=== PATIENT | female | born 1945 | race Caucasian/White ===

== ENCOUNTER 2023-03-30 15:23 | Inpatient (IN) | payer MEDICARE, OTHER, SELFPAY ==
[2023-03-30 11:29] VITALS: BP 120/78
[2023-03-30 11:55] VITALS: BMI 18.3
[2023-03-30 12:02] VITALS: BP 152/61
--- NOTE | 2023-03-30 12:19 | ED.GENMED ---
History of Present Illness
General
Chief Complaint: Breathing Problem
Source: patient and family
Time Seen by Provider: 03/30/23 11:38
Travel History
Have you had any contact with someone who has COVID-19?: No
Do you have any symptoms of coronavirus? Fever > 100 degrees, chills, cough, shortness of breath, sore throat, loss of taste or smell, muscle aches, or headache?: Yes
Symptoms:: sob
History of Present Illness
History of Present Illness:
78-year-old female with past medical history of TIA and COPD (uses 2 L via nasal cannula as needed) presenting to the emergency department for evaluation of 4 days of gradually worsening chest tightness, shortness of breath, left upper extremity
intermittent paresthesia, mild exertional dyspnea. Patient notes that her symptoms seem to be mostly during any type of exertion with her chest tightness worsening and taking about 5 to 10 minutes to resolve following exertion. She states that
this feels different than a typical COPD exacerbation for her and is otherwise denying any cough, fevers, chills, rigors, pleurisy, hemoptysis or other sputum production, lower extremity edema or pain, abdominal pain. Patient does note she was
admitted at [facility] at the beginning to middle of January due to a COVID infection but reports full recovery from this. Social history was significant for still smoking about 6 cigarettes/day. Patient has never seen cardiology nor had
an echocardiogram or stress test. 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
Past History
Past History
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
ED Past Surgical History: Appendectomy and Gynecological
Social History
Tobacco: Smoker
Alcohol: Occasional
Drug: None
Personal:
Living: alone
Review of Systems
Review of Systems
All Other Systems: ROS reviewed and negative except as documented in HPI and ROS
Phy Exam
Physical Exam
Physical Exam:
GENERAL: Alert , in no apparent distress
EYE: conjunctiva clear
NECK: Supple
ENT: o/p clr, mmm.
CARDIAC: Regular rate and rhythm, systolic murmur at the left sternal border
LUNGS: somewhat diminished lung sounds but otherwise clear, no acute respiratory distress, no wheezes/rales/rhonchi
Abdomen: Soft, nontender, nondistended
NEUROLOGICAL: Alert and oriented
SKIN: Warm and dry, skin intact.
MUSCULOSKELETAL: well perfused. No edema
PSYCH: Normal and appropriate interaction.
Scores
Heart Failure Risk
Heart Failure Risk Score: Not Applicable
Heart Score for Chest Pain Patients
STEMI patient?: No
History: Moderately Suspicious
ECG: Nonspecific Repolarization
Age: >/= 65 years
Risk Factors: 1 or 2 Risk Factors
Troponin: </= Normal Limit
Heart Score for Chest Pain Patients: 5
Heart Score Risk: 20.3% MACE over next 6 weeks
Withdrawal Assessment of Alcohol
Withdrawal Assessment Completed?: Not applicable
Course
Orders/Labs/Results
Orders:
Orders
03/30/23 11:23
Electrocardiogram (*1) Urgent
Reason for Study: Shortness of Breath
EKG- Treatment ONCE
03/30/23 12:19
CT Chest Pe Study Urgent
Comment:
Reason For Exam: tachy, hypoxic, recent covid, hx COPD
03/30/23 12:27
Complete Blood Count/With Diff Urgent
Comprehensive Metabolic Panel Urgent
NT-proBNP Urgent
PTT Urgent
Prothrombin Time Urgent
Troponin I Urgent
03/30/23 14:49
Ipratropium/Albuterol Sulfate [Duoneb] 3 ml INH R NOW ONE
Abnormal Lab Results
03/30/23
12:27
WBC 3.9 L 10^3/uL
(4.8-10.8)
MCHC 32.9 L g/dL
(33.0-37.0)
Absolute Lymphs (auto) 0.7 L 10^3/uL
(1.2-3.4)
Lymphocytes % 17.0 L %
(20.5-51.1)
Monocytes % 12.7 H %
(1.7-9.3)
BUN 18 H mg/dl
(7-17)
Glucose 117 H mg/dl
(70-99)
AST 44 H U/L
(14-36)
03/30/23 12:27
03/30/23 12:27
Vital Signs
Initial and Last Documented VS:
Initial Vital Signs
Temp Pulse Resp BP Pulse Ox
98.2 F 115 32 120/78 87
03/30/23 11:29 03/30/23 11:29 03/30/23 11:29 03/30/23 11:29 03/30/23 11:29
Last Documented Vital Signs
Temp Pulse Resp BP Pulse Ox
98.2 F 81 19 152/57 98
03/30/23 11:29 03/30/23 14:30 03/30/23 14:30 03/30/23 13:00 03/30/23 14:30
MDM/Problems Addressed
Differential Diagnosis Includes:
Stable versus unstable angina versus possible NSTEMI, COPD exacerbation, PE, less likely infectious etiology such as pneumonia
MDM/Problems Addressed:
78-year-old female presenting to the emergency department for evaluation of chest discomfort that has been ongoing for 4 days associated with exertional dyspnea and shortness of breath that do seem to improve at rest. Patient currently on 3 L via
nasal cannula here with good response. Triage vital signs were noted for tachycardia, tachypnea and hypoxia. She is very comfortable appearing on the 3 L. Patient notes that she is intermittently using the oxygen and the son believes patient does
not use this very frequently at nighttime when she is supposed to. Patient does note that this feels different than her typical COPD type symptoms and based off her descriptors I do have some concern for possible stable or unstable angina. She
notes that she has never been seen by cardiology in the past. She does have a murmur on exam and son believes that assistant teaching professor has told her about a murmur before. Given her risk factors I do anticipate possible need for admission. Will obtain
CTA of the chest for PE rule out given recent COVID infection and hospitalization. Reassessment following.
Chronic conditions affecting care: COPD
Acute Exacerbation and/or Progression of Chronic Illness: COPD
*Radiology
Radiology exam reviewed: radiology read reviewed
*Pulse Oximetry
Patient hypoxic: yes
*EKG
Interpreted by ED Provider?: Yes
Comparison EKG: no comparison EKG present
Heart Rate: 113
Rate: tachycardiac
Rhythm: sinus
Blanco: normal axis
Ischemia: T-wave inversion (inferior wall changes)
*[employer] Product Consultant Interpretation
Rate: tachycardiac
Rhythm: sinus
*Critical Care Note
Total Time (30-74mins, 75-104mins- exclusive of procedures): Not Applicable
Patient Management
Discussion with other providers: Hospitalist
Escalation/DeEscalation of care consider admission/obs:
Patient's labs are largely unremarkable. She does have a leukopenia which at this point is unclear if this is chronic or potentially related to patient's symptoms today. Troponin is negative. Troponin and BNP is negative. Patient's chest CT
consistent with COPD changes. There is also an incidental thyroid nodule which I discussed with the patient but that this can be worked up as an outpatient. Ultimately given patient's age and risk factors as well as presenting vital signs I do
think it is reasonable to admit for further evaluation and cardiology consultation. Hospitalist is aware and accepts for continued evaluation and treatment.
ED Attending Note
-
Portions of this chart may have been created with voice recognition software.� Occasional wrong word or��sound alike� substitutions may have occurred due to the inherent limitations of voice recognition software.
Discharge Plan
Departure
Patient Disposition: Admit
Date of Disposition: 03/30/23
Time of Disposition: 14:19
Presentation/result/management discussed w/ accepting MD/DO: Hospitalist
Discharge Problem:
Chest pain, Hypoxia
Prescriptions:
No Action
Theragen Tablet
1 tab PO DAILY
aspirin 81 mg Tablet,Delayed Release (Dr/Ec)
81 mg PO DAILY
Patient Comments:
03/30/2023, pt. unsure if she took this med. today.
acetaminophen [Tylenol Extra Strength] 500 mg Tablet
500 mg PO BIDPRN PRN (Reason: mild pain)
simvastatin 20 mg Tablet
20 mg PO HS
Patient Comments:
03/30/2023, this med. is prescribed for pt. to take once daily; however, pt. only takes it when they feel like it.
albuterol sulfate 90 mcg/actuation Hfa Aerosol Inhaler
2 puff INHALATION R Q4HPRN PRN (Reason: sob)
cholecalciferol (vitamin D3) 50 mcg (2,000 unit) Tablet
50 mcg PO DAILY
Trelegy Ellipta 100-62.5-25 mcg Blister With Device
1 inh INHALATION R DAILY
Referrals:
Narayan Jung DO [Family Provider] -
Interventions
Interventions:
*Risk Screen - Suicide Last Done: 03/30/23 11:29
*General Assessment Last Done: 03/30/23 11:29
*Neglect/Abuse Screening Last Done: 03/30/23 11:29
ED- Fall Risk Assessment Last Done: 03/30/23 11:55
*ED COVID-19 Vaccine History Last Done: 03/30/23 11:29
ED- Cardiac Assessment Last Done: 03/30/23 11:55
ED- Pulmonary Assessment Last Done: 03/30/23 11:55
[2023-03-30 12:44] LABS: % Eosinophils 0.5 % (0-6); % Immature Granulocytes 0.3 % (0-0.5); % Monocytes 12.7 % (1.7-9.3); % Neutrophils 68.5 % (42.2-75.2); Absolute Lymphocytes 0.7 10^3/uL (1.2-3.4); Absolute Monocytes 0.5 10^3/uL (0.1-0.6); Absolute Neutrophils 2.7 10^3/uL (1.4-6.5); Hematocrit 42.3 % (37.0-47.0); Hemoglobin 13.9 g/dL (12.0-16.0); Mean Corp Hgb Conc. 32.9 g/dL (33.0-37.0); Mean Corpuscular Hgb 30.7 pg (27.0-31.0); Mean Corpuscular Volume 93.4 fL (81.0-99.0); Mean Platelet Volume 9.9 fL (7.4-10.4); Nucleated Red Blood Cells % 0 %; Platelet Count 182 10^3/uL (130-400); Red Blood Cell Count 4.53 10^6/uL (4.20-5.40); White Blood Cell Count 3.9 10^3/uL (4.8-10.8)
[2023-03-30 12:52] LABS: INR 1.08; PT 14.1 Sec (11.4-14.6)
[2023-03-30 12:53] LABS: APTT 29.1 Sec (23.4-35.0)
[2023-03-30 13:00] VITALS: BP 152/57
[2023-03-30 13:05] LABS: NT-proBNP 176 pg/ml; Troponin I < 0.012 ng/ml
[2023-03-30 13:07] LABS: ALT (SGPT) 21 U/L (0-35); AST (SGOT) 44 U/L (14-36); Alkaline Phosphatase 63 U/L (38-126); Blood Urea Nitrogen 18 mg/dl (7-17); Calcium 9.6 mg/dl (8.4-10.2); Carbon Dioxide 29 mmol/L (22-30); Chloride 102 mmol/L (98-107); Estimated Creatinine Clearance 51 ml/min; Glucose 117 mg/dl (70-99); Potassium 4.6 mmol/L (3.5-5.1); Sodium 136 mmol/L (135-145); Total Bilirubin 0.7 mg/dl (0.2-1.3); Total Protein 6.8 g/dl (6.3-8.2); eGFR > 60.00
--- NOTE | 2023-03-30 14:52 | HPS.HSE ---
Addendum entered and electronically signed by Tj Cardoso MD 03/30/23 15:29:
I saw and examined the patient.
The INSURANCE SALESMAN or PA's note was reviewed and I agree with the note.
Comment:
Patient 78 years old female with history of COPD, TIA, peripheral vascular disease, hyperlipidemia, current smoker, chronic hypoxic respiratory failure on home oxygen, presented to the hospital with increased shortness of breath and cough. Patient
has been feeling more short of breath than usual over the last 4 to 5 days associated with dry cough that has been increasing in frequency and intensity, associated with chest tightness. She is supposed to use 2 L of oxygen but she is not very
compliant with oxygen use. Denies fevers or chills. Denies sick contact. 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 She was referred to hospitalist for further evaluation.
Physical exam:
General: Acutely ill. There is some muscle wasting/cachectic.
HEENT: Normocephalic, Atraumatic and Moist Mucous Membranes
Respiratory: Bilateral wheezing, rhonchi, tachypneic, respiratory distress due to increased work of breathing. On oxygen.
Cardiac: Regular Rhythm, tachycardic, and S1/S2
GI: Soft, Nontender and Nondistended
Musculoskeletal: No Clubbing, No Cyanosis and No Edema
Neuro: Awake, Alert and Oriented
Psych: Calm
A/P
Acute on chronic hypoxic respiratory failure due to acute COPD exacerbation--> IV steroids, bronchodilators, oxygen supplementation, cardiac monitoring, trop normal and she had an EKG with some abnormalities but could be tachycardia mediated so we
will repeat along with cardiac enzymes, seen and reviewed CT scan of the chest. Will need thyroid ultrasound either later down the road or as outpatient with subsequent biopsy. Will give further recommendations based on clinical course. Discussed
with patient and son at bedside that if she were to worsen she will require intubation and mechanical ventilation but she is firm and decided in the sense she does not want that, and she was to be DNR/DNI.
Original Note:
Family Physician
-
Family Physician: Narayan Jung
Chief Complaint
-
Chest Tightness
History of Present Illness
Patient is an 78-year-old female past medical history of COPD, TIA and hyperlipidemia who presents with chest tightness. Patient reports increasing chest tightness over the last 4 days. She describes the chest tightness mostly in the center of her
chest. She notes symptoms are worse with exertion, and improved with rest. She admits to slight shortness of breath. She notes cough that is moist, but nonproductive. She reports she had COVID about 2 months ago, and notes increased cough since
that time. She denies fever, sweats or chills at the present time. She denies lower extremity edema.
Medical History
Past Medical History
Past Medical History: Reports Other
Additional Past Medical History:
COPD
Hyperlipidemia
TIA
Past Surgical History: Reports Other
Additional Past Surgical History:
Appendectomy
Hysterectomy
Left Carotid Endarterectomy
Social History
Tobacco: Smoker (6 cigarettes a day)
Family History
Family History: Not pertinent
Allergies / Home Medications
Allergies reflects when Allergies were last updated in [facility].
Home Medications with original date entered in [facility]
Allergy/Medication List:
Allergies
Allergy/AdvReac Type Severity Reaction Status Date / Time
No Known Allergies Allergy Unverified 03/30/23 11:32
Home Medications
acetaminophen 500 mg tablet (Tylenol Extra Strength) 500 mg PO BIDPRN PRN mild pain 03/30/23
albuterol sulfate 90 mcg/actuation aerosol inhaler 2 puff inhalation R Q4HPRN PRN sob 03/30/23
aspirin 81 mg tablet,delayed release 81 mg PO DAILY 03/30/23
cholecalciferol (vitamin D3) 50 mcg (2,000 unit) tablet 50 mcg PO DAILY 03/30/23
fluticasone fur. 100 mcg-umeclid 62.5 mcg-vilant 25 mcg inhalat.powder (Trelegy Ellipta) 1 inh inhalation R DAILY 03/30/23
simvastatin 20 mg tablet 20 mg PO HS 03/30/23
therapeutic multivitamin 1 tab PO DAILY 03/30/23
Review of Systems
-
A 12 point ROS was completed and negative except as noted: Yes
Constitutional: Denies Fever or Chills
Respiratory: Reports Cough and Trouble Breathing
Cardiac: Reports Chest Pain; Denies Palpitations
Physical Exam
Vital Signs
Vital Signs
Temp Pulse Resp BP Pulse Ox
98.2 F 81 19 152/57 98
03/30/23 11:29 03/30/23 14:30 03/30/23 14:30 03/30/23 13:00 03/30/23 14:30
Physical Exam
General: Comfortable and Conversant
HEENT: NormoCephalic, Atraumatic and Oxygen (Nasal cannula)
Respiratory: Wheezes (Diffuse) and Non Labored Respirations
Cardiac: S1/S2, Regular Rhythm and Murmur (2/6 systolic murmur)
GI: Soft, Non Tender and Non Distended
Rectal: Deferred by Provider
Musculoskeletal: No Clubbing, No Cyanosis and No Edema
Skin: Warm and Dry
Neuro: Awake, Alert and Oriented
Psych: Calm
Laboratory Results
-
03/30/23 12:27
03/30/23 12:27
Laboratory Results
PT 14.1 Sec (11.4-14.6) 03/30/23 12:27
INR 1.08 03/30/23 12:27
APTT 29.1 Sec (23.4-35.0) 03/30/23 12:27
Total Bilirubin 0.7 mg/dl (0.2-1.3) 03/30/23 12:27
AST 44 U/L (14-36) H 03/30/23 12:27
ALT 21 U/L (0-35) 03/30/23 12:27
Alkaline Phosphatase 63 U/L (38-126) 03/30/23 12:27
Troponin I < 0.012 ng/ml 03/30/23 12:27
Data Reviewed
-
CT Scan: Report Reviewed by me
Lab Data: Labs Reviewed by me
Impression/Plan
-
Acute Hypoxic Respiratory Inefficiency secondary to Acute COPD Exacerbation
-Continue supplemental oxygen
-Continue Decadron
-Continue DuoNeb QID and PRN
-Continue Pulmicort Nebs
Chest Tightness, suspect related to COPD exacerbation, less likely cardiac
-Monitor on Telemetry
-Check repeat troponin later this after
Cardiac Murmur
-Check Echocardiogram
Hx Recurrent TIA s/p Left Carotid Endarterectomy
-Continue aspirin
Hyperlipemia
-Continue simvastatin
DVT proph: Lovenox
Code Status: DNR
[2023-03-30] MEDS: DUONEB 3 ML INH ×2 (14:56→19:24)
[2023-03-30 16:41] VITALS: BP 90/51
[2023-03-30 17:07] VITALS: BMI 18.1
[2023-03-30] MEDS: DECADRON 4 MG IV ×2 (17:09→22:26)
[2023-03-30 17:10] LABS: Troponin I < 0.012 ng/ml
[2023-03-30] MEDS: LOVENOX 40 MG SC (17:13)
[2023-03-30] MEDS: PULMICORT 0.5 MG INH (19:24)
[2023-03-30 19:46] VITALS: BP 161/66
[2023-03-30] MEDS: MUCINEX 600 MG PO (20:40)
[2023-03-30] MEDS: LIPITOR 10 MG PO (22:26)
[2023-03-30 23:27] VITALS: BP 122/57
[2023-03-31] VITALS (8 sets, daily range): BP systolic 93–143; BP diastolic 54–72; PULSE 87; O2SAT 95; BMI 17.8
[2023-03-31] MEDS: DECADRON 4 MG IV ×4 (04:53→22:09)
[2023-03-31 06:03] LABS: % Basophils 0.5 % (0-2); % Immature Granulocytes 0.5 % (0-0.5); % Lymphocytes 35.5 % (20.5-51.1); % Neutrophils 54.5 % (42.2-75.2); Absolute Lymphocytes 0.7 10^3/uL (1.2-3.4); Absolute Monocytes 0.2 10^3/uL (0.1-0.6); Absolute Neutrophils 1.1 10^3/uL (1.4-6.5); Hematocrit 44.3 % (37.0-47.0); Hemoglobin 14.4 g/dL (12.0-16.0); Mean Corp Hgb Conc. 32.5 g/dL (33.0-37.0); Mean Corpuscular Hgb 30.7 pg (27.0-31.0); Mean Corpuscular Volume 94.5 fL (81.0-99.0); Mean Platelet Volume 10.7 fL (7.4-10.4); Nucleated Red Blood Cells % 0 %; Platelet Count 172 10^3/uL (130-400); Red Blood Cell Count 4.69 10^6/uL (4.20-5.40)
[2023-03-31 06:58] LABS: Blood Urea Nitrogen 20 mg/dl (7-17); Calcium 9.7 mg/dl (8.4-10.2); Carbon Dioxide 26 mmol/L (22-30); Chloride 101 mmol/L (98-107); Estimated Creatinine Clearance 57 ml/min; Glucose 127 mg/dl (70-99); Potassium 4.6 mmol/L (3.5-5.1); Sodium 139 mmol/L (135-145); eGFR > 60.00
[2023-03-31] MEDS: MUCINEX 600 MG PO ×2 (07:18→20:48)
[2023-03-31] MEDS: ASPIR LOW (ENTERIC COATED) 81 MG PO (07:18)
[2023-03-31] MEDS: VITAMIN D3 (cholecalciferol) 50 MCG PO (07:18)
[2023-03-31] MEDS: PULMICORT 0.5 MG INH ×2 (07:46→19:20)
[2023-03-31] MEDS: DUONEB 3 ML INH ×3 (07:46→19:20)
--- NOTE | 2023-03-31 08:35 | W.PN.HOSP.TC ---
Today's Communication/Plan
-
Continue IV steroids, oral antibiotics, bronchodilators.
Assessment / Plan
Assessment / Plan
Physical exam:
General: Acutely ill.� There is some muscle wasting/cachectic.
HEENT: Normocephalic, Atraumatic and Moist Mucous Membranes
Respiratory: Bilateral wheezing, rhonchi, tachypneic, respiratory distress due to increased work of breathing.� On oxygen.
Cardiac: Regular Rhythm, tachycardic, and S1/S2, systolic ejection murmur
GI: Soft, Nontender and Nondistended
Musculoskeletal: No Clubbing, No Cyanosis and No Edema
Neuro: Awake, Alert and Oriented
Psych: Calm
A/P:
Acute on chronic hypoxic respiratory failure secondary to Acute COPD Exacerbation
-Continue supplemental oxygen
-Continue IV Decadron, 4 mg every 6 hours
-Continue DuoNeb QID and PRN
-Continue Pulmicort Nebs
-Add oral azithromycin (QTc acceptable 450)
-Started nicotine patch
-Will have pulmonary consult for further advice and evaluation
Chest Tightness, suspect related to COPD exacerbation, less likely cardiac
-Monitor on Telemetry
-Troponin negative x 2 less than 0.012
-Abnormal EKG
-Can consider outpatient ischemic workup if desired with cardiology
-Echocardiogram normal regional wall motion and EF more than 75%. There was moderate aortic stenosis.
Aortic stenosis:
-Moderate aortic stenosis by transthoracic echo
-Will need follow-up as outpatient with cardiology
Leukopenia
-Monitor
Hx Recurrent TIA s/p Left Carotid Endarterectomy
-Continue aspirin
Hyperlipemia
-Continue simvastatin
DVT proph: Lovenox
Code Status: DNR
Anticipated Discharge: > 48 hours
Subjective/Interval History
-
Date of Service: March 31, 2023
Patient feels not much improvement since yesterday, still short of breath, still some cough. Afebrile
Objective Data
-
Labs:
Laboratory Results
03/31/23
05:09
WBC 2.0 L*
Hgb 14.4
Hct 44.3
Plt Count 172
Sodium 139
Potassium 4.6
Chloride 101
Carbon Dioxide 26
BUN 20 H
Creatinine 0.6
Glucose 127 H
Calcium 9.7
Vital Signs:
Vital Signs
Temp Pulse Resp BP Pulse Ox
97.9 F 95 18 93/63 96
03/31/23 07:41 03/31/23 07:49 03/31/23 07:49 03/31/23 07:41 03/31/23 07:49
I&O
03/30/23 03/31/23 04/01/23
06:59 06:59 06:59
Intake Total 480 / 480
Balance 480 / 480
[2023-03-31] MEDS: ZITHROMAX 250 MG PO (09:48)
--- NOTE | 2023-03-31 14:21 | CM ---
Chart reviewed. Spoke with pt at bedside
Pt reports lives in a ranch style home alone
Has assistance/support from family
Has home oxygen from [employer] - baseline 2L
Reports no other dme.
Denies past HH/SNF
PCP - Dr Marina Jung
Pharm - [facility]
PT/OT recommending home health
Pt has no preference for agency
Referred to [facility] for home services
Plan - home with home services when medically ready
[2023-03-31] MEDS: DUONEB INH ×2 (15:41→15:44)
--- NOTE | 2023-03-31 16:14 | CON.PUL ---
Consultation
Consultation Request
Date/Time Consultation Requested: 03/31/23
Date/Time Consultation Performed: 03/31/23
Reason for Consultation: shortness of breath, COPD
Medical History
-
History of Present Illness:
History obtained from the chart and from the patient. Patient is an 78-year-old female with history of COPD diagnosed 4 months ago on Trelegy inhaler since with improvement, Covid January 2023 hospitalized at [facility], now presents with increased
shortness of breath over the past 4 to 7 days. Patient feels breathing has worsened slowly over the last 6 months. She does have albuterol at home. She was told to come to [facility] per her primary. Upon arrival, she is afebrile, pulse
115, breathing at 32, blood pressure 120/78, 87%. CT chest was obtained which ruled out PE. We are asked to help from pulmonary standpoint.
Patient states she has been on oxygen therapy since her COVID infection. She does not see cardiology. She denies any falls, fevers, hemoptysis, difficulty swallowing or choking. She admits to 5 to 10 pound weight loss over the last couple months
which she attributes to her breathing. Unfortunate she continues to smoke down to 6 cigarettes a day, was smoking a pack for 60 years. 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
.
PMH: COPD on home oxygen, history of TIA, hyperlipidemia, appendectomy, left carotid endarterectomy, hysterectomy
Past Medical History
Past Medical History: None (See above)
Past Surgical History: None (See above)
Social History
Tobacco: Smoker ([id number], continues to smoke 6 cigarettes a day)
Alcohol: None
Drug: None
Personal:
Living: Alone
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
Family History
Family History: Other (No family history of lung disease, lung cancer)
Allergies / Home Medications
Allergies
Allergy/AdvReac Type Severity Reaction Status Date / Time
No Known Allergies Allergy Unverified 03/30/23 11:32
Home Medications
Medication Instructions Recorded Confirmed Last Taken Type
acetaminophen 500 mg tablet 500 mg PO BIDPRN PRN mild pain 03/30/23 03/30/23 3 Days Ago History
(Tylenol Extra Strength) ~03/27/23
albuterol sulfate 90 mcg/actuation 2 puff inhalation R Q4HPRN PRN sob 03/30/23 03/30/23 03/29/23 History
aerosol inhaler
aspirin 81 mg tablet,delayed 81 mg PO DAILY Blood Clot 03/30/23 03/30/23 Unknown History
release Prevention/Tx
cholecalciferol (vitamin D3) 50 50 mcg PO DAILY Supplement 03/30/23 03/30/23 03/30/23 History
mcg (2,000 unit) tablet
fluticasone fur. 100 mcg-umeclid 1 inh inhalation R DAILY 03/30/23 03/30/23 03/30/23 History
62.5 mcg-vilant 25 mcg Lung/Breathing Issues
inhalat.powder (Trelegy Ellipta)
simvastatin 20 mg tablet 20 mg PO HS High Cholesterol 03/30/23 03/30/23 Unknown History
therapeutic multivitamin 1 tab PO DAILY Supplement 03/30/23 03/30/23 03/30/23 History
Review of Systems
-
All other systems: Negative unless noted
Vitals / Labs / Diagnostic Testing
Vital Signs
Temp Pulse Resp BP Pulse Ox
97.9 F 99 17 143/62 94
03/31/23 15:37 03/31/23 15:37 03/31/23 15:37 03/31/23 15:37 03/31/23 15:37
Lab Data
03/31/23 05:09
03/31/23 05:09
Diagnostic Testing:
Physical Exam
-
HEENT: Normocephalic, Anicteric and Other (Mildly cachectic)
Cardiovascular: S1/S2, Regular Rhythm, Murmur (2/6 systolic murmur), Peripheral Edema (n) and Calf Tenderness (n)
Respiratory: Wheeze (Mild expiratory), Rales (n), Rhonchi (n), Non-Labored Respirations, Accessory Resp Muscle Use (Mild used with conversation and movement) and Other (Decreased breath sounds)
GI: Soft, Non Distended and Non Tender
Neurology: Awake, Alert, Oriented and No Motor Deficits
Skin: Good Color and Other (No clubbing, cyanosis, no rash)
General: Comfortable
Assessment
-
78-year-old female with history of COPD on home oxygen, recent COVID infection requiring hospitalization 2022 at [facility], now presents with worsening shortness of breath over the past 4 to 7 days. Found to be hypoxic 87% on oxygen. Admitted for
COPD exacerbation. We are asked to help from pulmonary standpoint
Acute COPD exacerbation
Leukopenia
3 cm thyroid mass per CT imaging
no significant tracheal extrinsic compression
Pulmonary cachexia
10 pound weight loss over the past few weeks to months
Conditions prior to admission
History of COPD
On home oxygen
History of Covid
Hospitalized at [facility] January 2023
History of TIA
History of carotid disease
LCEA
19-[id number]-[id number] history of smoking, ongoing
Plan/recommendations
At this time, patient with poor air movement on exam, mild wheezing
Difficult to expectorate
She is on home oxygen, using Trelegy at home
She is not using her nebulizer as instructed
Moving forward
Continue with DuoNebs, budesonide
Hold Trelegy
Continue with IV Decadron
Agree with daily macrolide therapy, azithromycin
Add 3% saline in the a.m.
GERD therapy while on steroids
Concerned about patient's 10 pound weight loss which will likely have a dramatic effect on her respiratory status
Nutritional evaluation
Rec pulm f/u as op
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
Will follow
[2023-03-31] MEDS: LOVENOX 40 MG SC (17:10)
[2023-03-31] MEDS: LIPITOR 10 MG PO (22:09)
[2023-04-01] MEDS: PEPCID 20 MG PO (01:11)
[2023-04-01 03:42] VITALS: BP 137/62
[2023-04-01] MEDS: DECADRON 4 MG IV ×4 (05:33→22:34)
[2023-04-01 06:00] VITALS: BMI 18.0
[2023-04-01 07:00] VITALS: BP 136/54
--- NOTE | 2023-04-01 07:47 | W.PN.HOSP.TC ---
Today's Communication/Plan
-
Continue IV steroids, bronchodilators.
Assessment / Plan
Assessment / Plan
Physical exam:
General: Acutely ill.� There is some muscle wasting/cachectic.
HEENT: Normocephalic, Atraumatic and Moist Mucous Membranes
Respiratory: Bilateral wheezing, rhonchi, tachypneic, respiratory distress due to increased work of breathing.� On oxygen.
Cardiac: Regular Rhythm, tachycardic, and S1/S2, systolic ejection murmur
GI: Soft, Nontender and Nondistended
Musculoskeletal: No Clubbing, No Cyanosis and No Edema
Neuro: Awake, Alert and Oriented
Psych: Calm
A/P:
Acute on chronic hypoxic respiratory failure secondary to Acute COPD Exacerbation
-Continue supplemental oxygen
-Continue IV Decadron, 4 mg every 6 hours
-Continue DuoNeb QID and PRN
-Continue Pulmicort Nebs
-Cont oral azithromycin (QTc acceptable 450)
-Cont nicotine patch
-Pulmonary consult appreciated
-Discussed with son over the phone
Thyroid mass
-Needs thyroid ultrasound down the road and probably outpatient biopsy
Chest Tightness, suspect related to COPD exacerbation, less likely cardiac
-Monitor on Telemetry
-Troponin negative x 2 less than 0.012
-Abnormal EKG
-Can consider ischemic workup with cardiology as outpatient when she improved from this hospitalization and her copd.
-Echocardiogram normal regional wall motion and EF more than 75%. There was moderate aortic stenosis.
Aortic stenosis:
-Moderate aortic stenosis by transthoracic echo
-Will need follow-up as outpatient with cardiology
Leukopenia
-Monitor
Hx Recurrent TIA s/p Left Carotid Endarterectomy
-Continue aspirin
Hyperlipemia
-Continue simvastatin
DVT proph: Lovenox
Code Status: DNR
Anticipated Discharge: > 48 hours
Subjective/Interval History
-
Date of Service: April 01, 2023
Patient feels slightly better today although still short of breath and coughing spells. No chest pain. Afebrile
Objective Data
-
Vital Signs:
Vital Signs
Temp Pulse Resp BP Pulse Ox
97.6 F 64 18 136/54 98
04/01/23 07:00 04/01/23 07:00 04/01/23 07:00 04/01/23 07:00 04/01/23 07:00
I&O
03/31/23 04/01/23 04/02/23
06:59 06:59 06:59
Intake Total 480 / 480 0 1859
Balance 480 / 480 1859
Review of Systems
-
All other systems: Reviewed and negative
[2023-04-01] MEDS: PROTONIX IV 40 MG IV (07:54)
[2023-04-01] MEDS: MUCINEX 600 MG PO ×2 (07:55→21:40)
[2023-04-01] MEDS: NSS (PRESERVATIVE FREE) 10 ML IV (07:55)
[2023-04-01] MEDS: ZITHROMAX 250 MG PO (07:55)
[2023-04-01] MEDS: VITAMIN D3 (cholecalciferol) 50 MCG PO (07:55)
[2023-04-01] MEDS: ASPIR LOW (ENTERIC COATED) 81 MG PO (07:55)
[2023-04-01] MEDS: TESSALON PERLES 200 MG PO (07:55)
[2023-04-01] MEDS: DUONEB 3 ML INH ×4 (08:33→19:16)
[2023-04-01] MEDS: PULMICORT 0.5 MG INH ×2 (08:33→19:16)
[2023-04-01] MEDS: SODIUM CHLORIDE 3% FOR INHALATION 1 VIAL INH (08:33)
[2023-04-01 11:00] VITALS: BP 137/92
[2023-04-01 14:51] VITALS: PULSE 92; O2SAT 94
[2023-04-01 15:00] VITALS: BP 108/73
[2023-04-01] MEDS: LOVENOX 40 MG SC (17:46)
--- NOTE | 2023-04-01 18:49 | W.PN.PUL3 ---
Today's Communication / Plan
-
O2
BDs
CS
Azithro
Assessment
-
78-year-old female with history of COPD on home oxygen, recent COVID infection requiring hospitalization 2022 at [place], now presents with worsening shortness of breath over the past 4 to 7 days. Found to be hypoxic 87% on oxygen. Admitted for
COPD exacerbation. We are asked to help from pulmonary standpoint
Acute COPD exacerbation
Leukopenia
3 cm thyroid mass per CT imaging
no significant tracheal extrinsic compression
Pulmonary cachexia
10 pound weight loss over the past few weeks to months
Conditions prior to admission
History of COPD
On home oxygen
History of Covid
Hospitalized at [place] January 2023
History of TIA
History of carotid disease
LCEA
[id number] history of smoking, ongoing
Plan/recommendations
Slow clinical improvement
She is on home oxygen 2.5L, using Trelegy ellipta at home
She is not using her nebulizer as instructed
Continue with DuoNebs, budesonide
Hold Trelegy for now, resume upon d/c
Continue with IV Decadron 4 mg IV q6, down to 4 mg q12 if improvement continues in AM
Agree with daily macrolide therapy, azithromycin
Add 3% saline in the a.m.
GERD therapy while on steroids
Concerned about patient's 10 pound weight loss which will likely have a dramatic effect on her respiratory status
Nutritional evaluation appreciated
Rec pulm f/u as op
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
D/w [facility]
Subjective Data
-
Date of Service:
Date of Service: April 01, 2023
Chief Complaint: Pulmonary Follow Up
Subjective:
Reports improvement of dyspnea and cough
On home O2 2.5L
Currently on 3L, POx 94%
Review of Systems
General: Fever (n), Sweats (n), Chills (n) and Satisfactory Appetite
HEENT: Epistaxis (n) and Dysphagia (n)
Cardiopulmonary: Dyspnea on Exertion, Cough, Wheezing and Hemoptysis
GI: Abdominal Pain (n), Nausea and Vomiting (n)
Neuro: Weakness
Objective Data
Data Reviewed
Vital Signs / I&O / Oxygen:
Vital Signs
Temp Pulse Resp BP Pulse Ox
97.6 F 111 20 108/73 94
04/01/23 15:00 04/01/23 15:26 04/01/23 15:26 04/01/23 15:00 04/01/23 15:26
Intake and Output
03/31/23 04/01/23 04/02/23
06:59 06:59 06:59
Intake Total 480 / 480 1860 / 1860 900 / 900
Balance 480 / 480 1860 / 1860 900 / 900
SaO2 94
Nasal Cannula flow liters per 3
minute
Physical Exam
General: Comfortable
HEENT: Normocephalic and Moist Mucous Membranes
Cardiovascular: Regular Rhythm, Murmur, Peripheral Edema and Calf Tenderness (n)
Respiratory: Wheeze (mild), Rhonchi and Stridor
GI: Soft, Non Distended and Non Tender
Neurology: Awake, AO x 3 and No Motor Deficits
Skin: Dry
Labs/Micro/Reports
Lab Data
03/31/23 05:09
03/31/23 05:09
[2023-04-01] MEDS: LIPITOR 10 MG PO (21:39)
[2023-04-01 23:54] VITALS: BP 148/95
[2023-04-02] MEDS: DECADRON 4 MG IV ×3 (05:41→17:34)
[2023-04-02 06:00] VITALS: BMI 18.0
[2023-04-02 07:00] VITALS: BP 136/58
[2023-04-02] MEDS: PULMICORT 0.5 MG INH ×2 (07:29→20:28)
[2023-04-02] MEDS: SODIUM CHLORIDE 3% FOR INHALATION 1 VIAL INH (07:29)
[2023-04-02] MEDS: DUONEB 3 ML INH ×4 (07:29→20:28)
--- NOTE | 2023-04-02 08:27 | W.PN.HOSP.TC ---
Today's Communication/Plan
-
Continue IV steroids and bronchodilators. Discharge planning in progress
Assessment / Plan
Assessment / Plan
Physical exam:
General: Acutely ill.� There is some muscle wasting/cachectic.
HEENT: Normocephalic, Atraumatic and Moist Mucous Membranes
Respiratory: Decreased breath sounds bilateral; Bilateral wheezing but less than before. No crackles or rhonchi.� On oxygen.
Cardiac: Regular Rhythm, tachycardic, and S1/S2, systolic ejection murmur
GI: Soft, Nontender and Nondistended
Musculoskeletal: No Clubbing, No Cyanosis and No Edema
Neuro: Awake, Alert and Oriented
Psych: Calm
A/P:
Acute on chronic hypoxic respiratory failure secondary to Acute COPD Exacerbation
-Continue supplemental oxygen
-Continue IV Decadron, 4 mg every 6 hours--> decrease to 4 mg every 8 hours today and possible change to oral tomorrow
-Continue DuoNeb QID and PRN
-Continue Pulmicort Nebs
-Cont oral azithromycin (QTc acceptable 450)
-Cont nicotine patch
-Pulmonary consult appreciated
-Discussed with son over the phone yesterday
-Assess for home oxygen tomorrow
Anxiety
-Will start with nonpharmacological measures first, and discussed about BuSpar and or Xanax and she would prefer BuSpar if needed which it is reasonable but at this point we will reevaluate.
Thyroid mass
-Needs thyroid ultrasound down the road and probably outpatient biopsy
-Will need follow-up with either ENT or endocrinology as outpatient.
Chest Tightness, suspect related to COPD exacerbation, less likely cardiac
-Monitor on Telemetry
-Troponin negative x 2 less than 0.012
-Abnormal EKG
-Can consider ischemic workup with cardiology as outpatient when she improved from this hospitalization and her copd.
-Echocardiogram normal regional wall motion and EF more than 75%. There was moderate aortic stenosis.
Aortic stenosis:
-Moderate aortic stenosis by transthoracic echo
-Will need follow-up as outpatient with cardiology
Leukopenia
-Monitor
Hx Recurrent TIA s/p Left Carotid Endarterectomy
-Continue aspirin
Hyperlipemia
-Continue simvastatin
DVT proph: Lovenox
Code Status: DNR
Anticipated Discharge: Within 24 hours
Subjective/Interval History
-
Date of Service: April 02, 2023
Patient feels better today, still having cough, less shortness of breath. No chest pain. She does feel anxious at times.
Objective Data
-
Vital Signs:
Vital Signs
Temp Pulse Resp BP Pulse Ox
97.5 F 76 20 136/58 96
04/02/23 07:00 04/02/23 07:33 04/02/23 07:33 04/02/23 07:00 04/02/23 07:33
I&O
04/01/23 04/02/23 04/03/23
06:59 06:59 06:59
Intake Total 1859 1140 / 1140
Balance 1859 1140 / 1140
Review of Systems
-
All other systems: Reviewed and negative
[2023-04-02] MEDS: MUCINEX 600 MG PO ×2 (08:49→20:39)
[2023-04-02] MEDS: ZITHROMAX 250 MG PO (08:49)
[2023-04-02] MEDS: TESSALON PERLES 200 MG PO (08:49)
[2023-04-02] MEDS: ASPIR LOW (ENTERIC COATED) 81 MG PO (08:50)
[2023-04-02] MEDS: NSS (PRESERVATIVE FREE) 10 ML IV (08:50)
[2023-04-02] MEDS: VITAMIN D3 (cholecalciferol) 50 MCG PO (08:50)
[2023-04-02] MEDS: PROTONIX IV 40 MG IV (08:50)
[2023-04-02] MEDS: TYLENOL 650 MG PO ×2 (12:12→17:41)
[2023-04-02 15:00] VITALS: BP 98/48
--- NOTE | 2023-04-02 15:19 | W.PN.PUL3 ---
Today's Communication / Plan
-
O2
CS
BDs
Assessment
-
78-year-old female with history of COPD on home oxygen, recent COVID infection requiring hospitalization 2022 at [place], now presents with worsening shortness of breath over the past 4 to 7 days. Found to be hypoxic 87% on oxygen. Admitted for
COPD exacerbation. We are asked to help from pulmonary standpoint
Acute COPD exacerbation
Leukopenia
3 cm thyroid mass per CT imaging
no significant tracheal extrinsic compression
Pulmonary cachexia
10 pound weight loss over the past few weeks to months
Conditions prior to admission
History of COPD
On home oxygen
History of Covid
Hospitalized at [place] January 2023
History of TIA
History of carotid disease
LCEA
[id number] history of smoking, ongoing
Plan/recommendations
She is on home oxygen 2.5L, using Trelegy ellipta at home
She was not using her nebulizer as instructed
Continue with DuoNebs, budesonide
Hold Trelegy for now, resume upon d/c
Continue with IV Decadron 4 mg IV q6, down to 4 mg q8
Transition to prednisone 40 mg qd tomorrow if improvement continues
Agree with daily macrolide therapy, azithromycin, continue as outpatient
Added 3% saline neb in the a.m., can d/c upon d/c
GERD therapy while on steroids
Concerned about patient's 10 pound weight loss which will likely have a dramatic effect on her respiratory status
Nutritional evaluation appreciated
Rec pulm f/u as op
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
D/w Mrs Burgos
Disposition efforts
Subjective Data
-
Date of Service:
Date of Service: April 02, 2023
Chief Complaint: Pulmonary Follow Up
Subjective:
No major events reported
Continues on O2
Resp daniel improving
Review of Systems
General: Fever (n), Sweats (n), Chills (n) and Satisfactory Appetite
HEENT: Epistaxis (n) and Dysphagia (n)
Cardiopulmonary: Dyspnea, Cough and Wheezing
GI: Abdominal Pain (n), Nausea (n) and Vomiting (n)
Neuro: Weakness (n)
Objective Data
Data Reviewed
Vital Signs / I&O / Oxygen:
Vital Signs
Temp Pulse Resp BP Pulse Ox
97.5 F 90 20 136/58 96
04/02/23 07:00 04/02/23 11:18 04/02/23 11:18 04/02/23 07:00 04/02/23 11:18
Intake and Output
04/01/23 04/02/23 04/03/23
06:59 06:59 06:59
Intake Total 1859 1140 / 1140
Balance 0 / 1859 1140 / 1140
SaO2 96
Nasal Cannula flow liters per 2
minute
Physical Exam
General: Comfortable
HEENT: Normocephalic and Moist Mucous Membranes
Cardiovascular: Regular Rhythm, Murmur, Peripheral Edema and Calf Tenderness (n)
Respiratory: Wheeze (improved, trace now), Rhonchi and Stridor
GI: Soft, Non Distended and Non Tender
Neurology: Awake, AO x 3 and No Motor Deficits
Skin: Dry
Labs/Micro/Reports
Lab Data
03/31/23 05:09
03/31/23 05:09
[2023-04-02] MEDS: LOVENOX 40 MG SC (17:35)
[2023-04-02] MEDS: LIPITOR 10 MG PO (21:29)
[2023-04-02 23:44] VITALS: BP 129/69
[2023-04-03] MEDS: TYLENOL 650 MG PO ×2 (00:14→07:12)
[2023-04-03 04:12] VITALS: BMI 17.9
[2023-04-03 07:00] VITALS: BP 135/98
[2023-04-03] MEDS: ASPIR LOW (ENTERIC COATED) 81 MG PO (07:12)
[2023-04-03] MEDS: VITAMIN D3 (cholecalciferol) 50 MCG PO (07:12)
[2023-04-03] MEDS: DELTASONE 40 MG PO (07:12)
[2023-04-03] MEDS: PROTONIX IV 40 MG IV (07:13)
[2023-04-03] MEDS: NSS (PRESERVATIVE FREE) 10 ML IV (07:13)
[2023-04-03] MEDS: ZITHROMAX 250 MG PO (07:13)
[2023-04-03] MEDS: SODIUM CHLORIDE 3% FOR INHALATION 1 VIAL INH (07:13)
[2023-04-03] MEDS: PULMICORT 0.5 MG INH ×2 (07:14→20:01)
[2023-04-03] MEDS: DUONEB 3 ML INH ×4 (07:14→20:02)
[2023-04-03] MEDS: MUCINEX PO ×3 (07:20→20:18)
--- NOTE | 2023-04-03 07:25 | W.PN.HOSP.TC ---
Today's Communication/Plan
-
Cont iv steroids, bronchodilator.
Assessment / Plan
Assessment / Plan
Physical exam:
General: Acutely ill.� There is some muscle wasting/cachectic.
HEENT: Normocephalic, Atraumatic and Moist Mucous Membranes
Respiratory: Decreased breath sounds bilateral; Bilateral wheezing more pronounced today. No crackles or rhonchi.� On oxygen.
Cardiac: Regular Rhythm, tachycardic, and S1/S2, systolic ejection murmur
GI: Soft, Nontender and Nondistended
Musculoskeletal: No Clubbing, No Cyanosis and No Edema
Neuro: Awake, Alert and Oriented
Psych: Calm
A/P:
Acute on chronic hypoxic respiratory failure secondary to Acute COPD Exacerbation
-Continue supplemental oxygen
-Continue IV Decadron, 4 mg every 6 hours--> we tried to decrease changing to oral but she is not ready so will change back to IV Dexa- will keep at 4 mg Q12 hr for now and reeval.
-Continue DuoNeb QID and PRN
-Continue Pulmicort Nebs
-Change azithromycin to Doxycycline today
-Cont nicotine patch
-Pulmonary consult appreciated
-Discussed with son over the phone over the weekend.
-Assess for home oxygen when ready for d/c.
Anxiety
-Will cont with nonpharmacological measures first, and discussed about BuSpar and or Xanax and she would prefer BuSpar if needed which it is reasonable but at this point we will reevaluate.
Underweight/Cachexia
-Dietitian consult
Back pain
-Change Tylenol to higher doses and schedule doses
-Add Lidoderm patch
-PT eval
Thyroid mass
-Needs thyroid ultrasound down the road and probably outpatient biopsy
-Will need follow-up with either ENT as outpatient. Discussed with Dr Akshat Solis (ENT) today and made referral for OP.
Chest Tightness, suspect related to COPD exacerbation, less likely cardiac
-Monitor on Telemetry
-Troponin negative x 2 less than 0.012
-Abnormal EKG
-Can consider ischemic workup with cardiology as outpatient when she improved from this hospitalization and her copd.
-Echocardiogram normal regional wall motion and EF more than 75%. There was moderate aortic stenosis.
-Discussed with quill layer, Dr Akshat Jeffrey today and made referral for OP.
Aortic stenosis:
-Moderate aortic stenosis by transthoracic echo
-Will need follow-up as outpatient with cardiology--->Discussed with quill layer, Dr Akshat Jeffrey today and made referral for OP.
Leukopenia
-No other worrisome signs but can consider Hematology eval as OP.
-Monitor
Hx Recurrent TIA s/p Left Carotid Endarterectomy
-Continue aspirin
Hyperlipemia
-Continue simvastatin
DVT proph: Lovenox
Code Status: DNR
Anticipated Discharge: 24 - 48 hours
Subjective/Interval History
-
Date of Service: April 03, 2023
Patient feels more short of breath today and also complains of back pain on the left lumbar area. Wheezing again. Afebrile. Denies chest pain.
Objective Data
-
Vital Signs:
Vital Signs
Temp Pulse Resp BP Pulse Ox
97.5 F 91 20 129/69 95
04/02/23 23:44 04/03/23 07:18 04/03/23 07:18 04/02/23 23:44 04/03/23 07:18
I&O
04/02/23 04/03/23 04/04/23
06:59 06:59 06:59
Intake Total 1140 / 1140 1200 / 1200
Balance 1140 / 1140 1200 / 1200
Review of Systems
-
All other systems: Reviewed and negative
[2023-04-03] MEDS: TORADOL 15 MG IV (10:59)
--- NOTE | 2023-04-03 11:09 | W.PN.PUL3 ---
Today's Communication / Plan
-
O2
BDs
Prednisone
D/c azithro, start doxycycline po
Assessment
-
78-year-old female with history of COPD on home oxygen, recent COVID infection requiring hospitalization 2022 at [place], now presents with worsening shortness of breath over the past 4 to 7 days. Found to be hypoxic 87% on oxygen. Admitted for
COPD exacerbation. We are asked to help from pulmonary standpoint
Acute COPD exacerbation
Leukopenia
3 cm thyroid mass per CT imaging
no significant tracheal extrinsic compression
Pulmonary cachexia
10 pound weight loss over the past few weeks to months
Conditions prior to admission
History of COPD
On home oxygen
History of Covid
Hospitalized at [place] January 2023
History of TIA
History of carotid disease
LCEA
[id number] history of smoking, ongoing
Plan/recommendations
She is on home oxygen 2.5L, using Trelegy ellipta at home
She was not using her nebulizer at home as instructed
Currently on O2 3L, POx 95%
First DH adm
Continue with DuoNebs, budesonide
Hold Trelegy for now, resume upon d/c
Was on IV Decadron 4 mg IV q6, down to 4 mg q8, as she was improving, then transitioned to prednisone 40 mg qd starting 04-03
Unfortunately 04-03 presents with rebound of bronchospasm at time of visit, not reported on couple of RT evaluations this morning, continue BDs, monitor
Advised not to refuse guaifenesin (she refused this morning)
On inpatient daily macrolide therapy, azithromycin, but noted progressive leukopenia (did present leukopenia on adm)
Rec to d/c azithromycin 04-03 as could accentuate leukopenia
Start doxycycline 100 mg po bid 04-03, no reported hematologic side effects, complete 5 d regimen through 04-05
Added 3% saline neb in the a.m., can d/c upon d/c
GERD therapy while on steroids
Concerned about patient's 10 pound weight loss which will likely have a dramatic effect on her respiratory status
Noted leukopenia on adm, progressive, monitor, d/c azithromycin
Nutritional evaluation appreciated
Rec pulm f/u as op
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
D/w Mrs Burgos
Subjective Data
-
Date of Service:
Date of Service: April 03, 2023
Chief Complaint: Pulmonary Follow Up
Subjective:
C/o acute on chronic low back pain, could not sleep well due to pain
This morning with surge of bronchospasm
Review of Systems
General: Fever (n), Sweats (n), Chills and Satisfactory Appetite (n)
HEENT: Epistaxis and Dysphagia (n)
Cardiopulmonary: Dyspnea, Cough, Sputum Production (trace), Wheezing (n) and Hemoptysis (n)
GI: Abdominal Pain (n), Nausea and Vomiting
Neuro: Weakness
Objective Data
Data Reviewed
Vital Signs / I&O / Oxygen:
Vital Signs
Temp Pulse Resp BP Pulse Ox
97.3 F 91 20 135/98 95
04/03/23 07:00 04/03/23 07:18 04/03/23 07:18 04/03/23 07:00 04/03/23 07:18
Intake and Output
04/02/23 04/03/23 04/04/23
06:59 06:59 06:59
Intake Total 1140 / 1140 1200 / 1200
Balance 1140 / 1140 1200 / 1200
SaO2 95
Nasal Cannula flow liters per 3
minute
Physical Exam
General: Respiratory Distress
HEENT: Normocephalic and Moist Mucous Membranes
Cardiovascular: Regular Rhythm, Murmur, Peripheral Edema and Calf Tenderness (n)
Respiratory: Wheeze, Rhonchi, Accessory Resp Muscle Use and Stridor
GI: Soft, Non Distended, Non Tender and Normal Bowel Sounds
Neurology: Awake, AO x 3 and No Motor Deficits
Skin: Dry
Labs/Micro/Reports
Lab Data
03/31/23 05:09
03/31/23 05:09
[2023-04-03 12:40] VITALS: PULSE 105; O2SAT 93
--- NOTE | 2023-04-03 13:46 | CM ---
CM reviewed pt with Dr Cardoso- pt not ready for dc today
Pt currently on 3L O2 and baseline O2 at home is 2L provided through [employer]
Home O2 eval ordered and pending
Pt has been accepted for service by [facility]
Discharge Disposition- home with [facility]- watch for change in home O2 needs
Fax- [phone]
[2023-04-03] MEDS: LIDOCAINE 4% PATCH 1 PATCH TOPICAL (14:07)
[2023-04-03] MEDS: DECADRON 4 MG IV (14:08)
[2023-04-03] MEDS: TYLENOL 1000 MG PO ×2 (14:09→20:20)
[2023-04-03 15:00] VITALS: BP 160/64
[2023-04-03] MEDS: LOVENOX 40 MG SC (17:24)
[2023-04-03] MEDS: VIBRAMYCIN 100 MG PO (20:16)
[2023-04-03] MEDS: LIPITOR PO (20:19)
[2023-04-03 23:35] VITALS: BP 99/55
[2023-04-04] MEDS: DECADRON 4 MG IV ×2 (02:13→13:17)
[2023-04-04 05:40] VITALS: BMI 18.0
[2023-04-04 05:43] LABS: % Immature Granulocytes 0.4 % (0-0.5); % Lymphocytes 10.1 % (20.5-51.1); % Monocytes 5.6 % (1.7-9.3); % Neutrophils 83.9 % (42.2-75.2); Absolute Lymphocytes 0.8 10^3/uL (1.2-3.4); Absolute Monocytes 0.4 10^3/uL (0.1-0.6); Absolute Neutrophils 6.3 10^3/uL (1.4-6.5); Hematocrit 39.2 % (37.0-47.0); Mean Corp Hgb Conc. 33.2 g/dL (33.0-37.0); Mean Corpuscular Hgb 30.8 pg (27.0-31.0); Mean Corpuscular Volume 92.9 fL (81.0-99.0); Mean Platelet Volume 10.1 fL (7.4-10.4); Nucleated Red Blood Cells % 0 %; Platelet Count 223 10^3/uL (130-400); Red Blood Cell Count 4.22 10^6/uL (4.20-5.40); Red Cell Dist. Width 13.1 % (11.5-14.5); White Blood Cell Count 7.5 10^3/uL (4.8-10.8)
[2023-04-04 05:50] LABS: Blood Urea Nitrogen 31 mg/dl (7-17); Calcium 9.9 mg/dl (8.4-10.2); Carbon Dioxide 34 mmol/L (22-30); Chloride 102 mmol/L (98-107); Estimated Creatinine Clearance 39 ml/min; Glucose 110 mg/dl (70-99); Potassium 4.9 mmol/L (3.5-5.1); Sodium 136 mmol/L (135-145); eGFR > 60.00
[2023-04-04] MEDS: TYLENOL PO (06:12)
[2023-04-04 07:33] VITALS: BP 109/64
[2023-04-04] MEDS: ASPIR LOW (ENTERIC COATED) 81 MG PO (07:48)
[2023-04-04] MEDS: LIDOCAINE 4% PATCH 1 PATCH TOPICAL (07:49)
[2023-04-04] MEDS: NSS (PRESERVATIVE FREE) 10 ML IV (07:51)
[2023-04-04] MEDS: PROTONIX IV 40 MG IV (07:51)
[2023-04-04] MEDS: MUCINEX PO ×4 (07:52→23:41)
[2023-04-04] MEDS: VITAMIN D3 (cholecalciferol) 50 MCG PO (07:52)
[2023-04-04] MEDS: VIBRAMYCIN 100 MG PO ×2 (07:52→21:00)
[2023-04-04] MEDS: DUONEB 3 ML INH ×4 (08:11→19:30)
[2023-04-04] MEDS: PULMICORT 0.5 MG INH ×2 (08:11→19:33)
[2023-04-04] MEDS: SODIUM CHLORIDE 3% FOR INHALATION 1 VIAL INH (08:12)
--- NOTE | 2023-04-04 10:23 | W.PN.HOSP.TC ---
Today's Communication/Plan
-
continue steroids, still have wheezing and dyspnea
continue wean off o2
Assessment / Plan
Assessment / Plan
Acute on chronic hypoxic respiratory failure secondary to Acute COPD Exacerbation
-Continue supplemental oxygen
-have ongoing dyspnea, will continue on IV decadron 4mg q12h.
-Continue DuoNeb QID and PRN
-Continue Pulmicort Nebs
-Change azithromycin to Doxycycline today - last dose of 04/05/23
-Cont nicotine patch
-on 4L [place], continue wean off as possible
Anxiety
-Dr Cardoso - discussed possible Buspar initiation and patient in agreement if needed.
Underweight/Cachexia
-Dietitian consult
Back pain
-Change Tylenol to higher doses and schedule doses
-Add Lidoderm patch
-PT eval
Thyroid mass
-Needs thyroid ultrasound down the road and probably outpatient biopsy
-Dr Cardoso discussed with Dr Akshat Solis (ENT) and made referral for OP follow up.
Chest Tightness, suspect related to COPD exacerbation, less likely cardiac
-Monitor on Telemetry
-Troponin negative x 2 less than 0.012
-Abnormal EKG
-Can consider ischemic workup with cardiology as outpatient when she improved from this hospitalization and her copd.
-Echocardiogram normal regional wall motion and EF more than 75%. There was moderate aortic stenosis.
-Dr Cardoso Discussed with client success manager, Dr Akshat Jeffrey and made referral for OP.
Aortic stenosis:
-Moderate aortic stenosis by transthoracic echo
-patient will follow up with Dr Akshat Jeffrey post discharge.
Leukopenia
-No other worrisome signs but can consider Hematology eval as OP.
-Monitor
Hx Recurrent TIA s/p Left Carotid Endarterectomy
-Continue aspirin
Hyperlipemia
-Continue simvastatin
DVT proph: Lovenox
Code Status: DNR
Anticipated Discharge: 24 - 48 hours
Subjective/Interval History
-
Date of Service: April 04, 2023
seen and examined
patient having dyspnea on walking to bathroom
feeling some chest tightness as well
remains on higher o2 requirement on 4L through [place]
Objective Data
-
Labs:
Laboratory Results
04/04/23
05:01
WBC 7.5
Hgb 13.0
Hct 39.2
Plt Count 223 D
Sodium 136
Potassium 4.9
Chloride 102
Carbon Dioxide 34 H
BUN 31 H
Creatinine 0.9
Glucose 110 H
Calcium 9.9
Vital Signs:
Vital Signs
Temp Pulse Resp BP Pulse Ox
98 F 91 19 109/64 93
04/04/23 07:33 04/04/23 08:13 04/04/23 08:13 04/04/23 07:33 04/04/23 08:13
I&O
04/03/23 04/04/23 04/05/23
06:59 06:59 06:59
Intake Total 1200 / 1200 480 / 480
Output Total 240 / 240
Balance 1200 / 1200 480 / 240 -240 / -240
Review of Systems
-
All other systems: Reviewed and negative
Physical Exam
-
General: Comfortable; Negative Respiratory Distress
HEENT: Oxygen (4L [place])
Respiratory: Wheezes
Cardiac: Regular Rhythm and S1/S2; Negative Murmur or Rub
Musculoskeletal: No Edema
Neuro: Awake, Alert, Oriented, No Motor Deficits and Nonfocal/Grossly Intact
Psych: Calm
[2023-04-04 12:05] VITALS: BP 157/61; PULSE 80; O2SAT 97
[2023-04-04] MEDS: TYLENOL 1000 MG PO ×2 (13:17→21:00)
--- NOTE | 2023-04-04 13:49 | W.PN.PUL3 ---
Today's Communication / Plan
-
O2
BDs
CS
Atb
Assessment
-
78-year-old female with history of COPD on home oxygen, recent COVID infection requiring hospitalization 2022 at [place], now presents with worsening shortness of breath over the past 4 to 7 days. Found to be hypoxic 87% on oxygen. Admitted for
COPD exacerbation. We are asked to help from pulmonary standpoint
Acute COPD exacerbation
Leukopenia
3 cm thyroid mass per CT imaging
no significant tracheal extrinsic compression
Pulmonary cachexia
10 pound weight loss over the past few weeks to months
Conditions prior to admission
History of COPD
On home oxygen
History of Covid
Hospitalized at [place] January 2023
History of TIA
History of carotid disease
LCEA
[id number] history of smoking, ongoing
Plan/recommendations
She is on home oxygen 2.5L, using Trelegy ellipta at home
She was not using her nebulizer at home as instructed
Currently on O2 3L, POx 95%
First DH adm
Continue with DuoNebs, budesonide
Hold Trelegy for now, resume upon d/c
Was on IV Decadron 4 mg IV q6, down to 4 mg q8, as she was improving, then transitioned to prednisone 40 mg qd starting 04-03, due to bronchospasm event that day adm recio resumed IV dexam (earlier visit by adm recio today reported active wheezing)
At time of visit resp daniel comfortable, will return to prednisone tomorrow if clinically stable
Advised not to refuse guaifenesin
On inpatient daily macrolide therapy, azithromycin, but noted progressive leukopenia (did present leukopenia on adm)
Rec to d/c azithromycin 04-03 as could accentuate leukopenia
Start doxycycline 100 mg po bid 04-03, no reported hematologic side effects, complete 5 d regimen through 04-05
Added 3% saline neb in the a.m., can d/c upon d/c
GERD therapy while on steroids
Concerned about patient's 10 pound weight loss which will likely have a dramatic effect on her respiratory status
Noted leukopenia on adm, progressive, monitor, d/c azithromycin
Nutritional evaluation appreciated
Rec pulm f/u as op
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
D/w Mrs Burgos reggie daily basis
Subjective Data
-
Date of Service:
Date of Service: April 04, 2023
Chief Complaint: Pulmonary Follow Up
Subjective:
Recovered after event of bronchospasm yesterday morning
Feeling progressively better, speaking in full sentences
Review of Systems
General: Fever (n), Sweats (n), Chills (n) and Satisfactory Appetite
HEENT: Epistaxis (n) and Dysphagia
Cardiopulmonary: Dyspnea (n at rest on O2), Dyspnea on Exertion, Cough, Sputum Production and Wheezing (mild intermittent)
GI: Abdominal Pain, Nausea and Vomiting
Neuro: Weakness
Objective Data
Data Reviewed
Vital Signs / I&O / Oxygen:
Vital Signs
Temp Pulse Resp BP Pulse Ox
98 F 91 19 109/64 93
04/04/23 07:33 04/04/23 08:13 04/04/23 08:13 04/04/23 07:33 04/04/23 08:13
Intake and Output
04/03/23 04/04/23 04/05/23
06:59 06:59 06:59
Intake Total 1200 / 1200 480 / 480
Output Total 240 / 240
Balance 1200 / 1200 480 / 240 -240 / -240
SaO2 93
Nasal Cannula flow liters per 3
minute
Physical Exam
General: Respiratory Distress
HEENT: Normocephalic and Moist Mucous Membranes
Cardiovascular: Regular Rhythm, Murmur, Peripheral Edema and Calf Tenderness (n)
Respiratory: Wheeze (n at time of visit), Rhonchi, Accessory Resp Muscle Use and Stridor
GI: Soft, Non Distended, Non Tender and Normal Bowel Sounds
Neurology: Awake, AO x 3 and No Motor Deficits
Skin: Dry
Labs/Micro/Reports
Lab Data
04/04/23 05:01
04/04/23 05:01
[2023-04-04 15:00] VITALS: BP 142/56
[2023-04-04] MEDS: LOVENOX 40 MG SC (17:06)
[2023-04-04] MEDS: LIPITOR PO ×2 (21:00→23:41)
[2023-04-04 23:20] VITALS: BP 107/55
[2023-04-05] MEDS: DECADRON 4 MG IV (01:58)
[2023-04-05 05:30] LABS: Hematocrit 39.3 % (37.0-47.0); Hemoglobin 13.1 g/dL (12.0-16.0); Mean Corp Hgb Conc. 33.3 g/dL (33.0-37.0); Mean Corpuscular Hgb 30.5 pg (27.0-31.0); Mean Corpuscular Volume 91.6 fL (81.0-99.0); Platelet Count 244 10^3/uL (130-400); Red Blood Cell Count 4.29 10^6/uL (4.20-5.40); Red Cell Dist. Width 13.2 % (11.5-14.5); White Blood Cell Count 8.3 10^3/uL (4.8-10.8)
[2023-04-05 05:48] LABS: Blood Urea Nitrogen 33 mg/dl (7-17); Calcium 9.6 mg/dl (8.4-10.2); Carbon Dioxide 35 mmol/L (22-30); Chloride 102 mmol/L (98-107); Estimated Creatinine Clearance 39 ml/min; Glucose 127 mg/dl (70-99); Sodium 136 mmol/L (135-145); eGFR > 60.00
[2023-04-05 06:00] VITALS: BMI 18.2
[2023-04-05 07:00] VITALS: BP 132/66
[2023-04-05] MEDS: DUONEB 3 ML INH ×2 (07:30→11:58)
[2023-04-05] MEDS: PULMICORT 0.5 MG INH (07:30)
[2023-04-05] MEDS: SODIUM CHLORIDE 3% FOR INHALATION 1 VIAL INH (07:31)
[2023-04-05] MEDS: VIBRAMYCIN 100 MG PO (07:42)
[2023-04-05] MEDS: NSS (PRESERVATIVE FREE) 10 ML IV (07:43)
[2023-04-05] MEDS: PROTONIX IV 40 MG IV (07:43)
[2023-04-05] MEDS: TYLENOL 1000 MG PO (07:43)
[2023-04-05] MEDS: LIDOCAINE 4% PATCH 1 PATCH TOPICAL (07:43)
[2023-04-05] MEDS: VITAMIN D3 (cholecalciferol) 50 MCG PO (07:44)
[2023-04-05] MEDS: ASPIR LOW (ENTERIC COATED) 81 MG PO (07:44)
[2023-04-05] MEDS: FLUSH (NSS) 2 FLUSH IV (07:48)
[2023-04-05] MEDS: MUCINEX PO (07:49)
--- NOTE | 2023-04-05 12:00 | CM ---
MD entered order for discharge today .
Spoke with patient she said she ready for discharge today. Her daughter Renetta will drive her home.
IMM reviewed with pt . She agrees with IMM and dc.
Pt currently on 2L O2 Pox 100%. and baseline O2 at home is 2L provided through [employer]. she has portable tank here to use on ride home. Tsering at [facility] office aware of dc and need for SOC,
PLAN Home with [facility] fax [phone]
--- NOTE | 2023-04-05 12:15 | W.PN.HOSP.TC ---
Addendum entered and electronically signed by Carlitos Gilliam MD 04/07/23 16:25:
Add on to diagnosis list :
Moderate protein calorie malnutrition
Original Note:
Today's Communication/Plan
-
d/c home
Assessment / Plan
Assessment / Plan
Acute on chronic hypoxic respiratory failure secondary to Acute COPD Exacerbation
-Continue supplemental oxygen
-Continue DuoNeb QID and PRN
-Continue Pulmicort Nebs
-Change azithromycin to Doxycycline today - last dose of 04/05/23
-Cont nicotine patch
-Dyspnea better. Transition patient to oral prednisone at discharge.
-maintain on 3L NC
Anxiety
-Dr Cardoso - discussed possible Buspar initiation and patient in agreement if needed.
Underweight/Cachexia
-Dietitian consult
Back pain
-Change Tylenol to higher doses and schedule doses
-Add Lidoderm patch
-PT eval
Thyroid mass
-Needs thyroid ultrasound down the road and probably outpatient biopsy
-Dr Cardoso discussed with Dr Akshat Solis (ENT) and made referral for OP follow up.
Chest Tightness, suspect related to COPD exacerbation, less likely cardiac
-Monitor on Telemetry
-Troponin negative x 2 less than 0.012
-Abnormal EKG
-Can consider ischemic workup with cardiology as outpatient when she improved from this hospitalization and her copd.
-Echocardiogram normal regional wall motion and EF more than 75%. There was moderate aortic stenosis.
-Dr Cardoso Discussed with carton marker machine, Dr Akshat Jeffrey and made referral for OP.
Aortic stenosis:
-Moderate aortic stenosis by transthoracic echo
-patient will follow up with Dr Akshat Jeffrey post discharge.
Leukopenia
-No other worrisome signs but can consider Hematology eval as OP.
-Monitor
Hx Recurrent TIA s/p Left Carotid Endarterectomy
-Continue aspirin
Hyperlipemia
-Continue simvastatin
DVT proph: Lovenox
Code Status: DNR
More than 30 minutes spent in discharge including
Final examination of the patient
Summarizing hospital stay
Instructions for continuing care to all relevant caregivers
Preparation of discharge records, prescriptions, and referral forms
Total time spent (in minutes): 38 mins
Anticipated Discharge: Today
Subjective/Interval History
-
Date of Service: April 05, 2023
feel better
o2 requirement down to 3L
no other reported issues
Objective Data
-
Labs:
Laboratory Results
04/05/23
05:00
WBC 8.3
Hgb 13.1
Hct 39.3
Plt Count 244
Sodium 136
Potassium 5.0
Chloride 102
Carbon Dioxide 35 H
BUN 33 H
Creatinine 0.9
Glucose 127 H
Calcium 9.6
Vital Signs:
Vital Signs
Temp Pulse Resp BP Pulse Ox
97.4 F 76 18 132/66 100
04/05/23 07:00 04/05/23 11:59 04/05/23 07:00 04/05/23 07:00 04/05/23 07:35
I&O
04/04/23 04/05/23 04/06/23
06:59 06:59 06:59
Intake Total 480 / 480 1500 / 1500
Output Total 240 / 240
Balance 480 / 240 1260 / 1260
Review of Systems
-
All other systems: Reviewed and negative
Physical Exam
-
General: Comfortable; Negative Respiratory Distress
HEENT: Oxygen (4L NC)
Respiratory: Wheezes
Cardiac: Regular Rhythm and S1/S2; Negative Murmur or Rub
Musculoskeletal: No Edema
Neuro: Awake, Alert, Oriented, No Motor Deficits and Nonfocal/Grossly Intact
Psych: Calm
--- NOTE | 2023-04-05 14:45 | W.PN.PUL3 ---
Today's Communication / Plan
-
O2
Atb
CS taper
BDs
[facility] follow up
Assessment
-
78-year-old female with history of COPD on home oxygen, recent COVID infection requiring hospitalization 2022 at [facility], now presents with worsening shortness of breath over the past 4 to 7 days. Found to be hypoxic 87% on oxygen. Admitted for
COPD exacerbation. We are asked to help from pulmonary standpoint
Acute COPD exacerbation
Leukopenia
3 cm thyroid mass per CT imaging
no significant tracheal extrinsic compression
Pulmonary cachexia
10 pound weight loss over the past few weeks to months
Thrush
Conditions prior to admission
History of COPD
On home oxygen
History of Covid
Hospitalized at [facility] January 2023
History of TIA
History of carotid disease
LCEA
[id number] history of smoking, ongoing
Plan/recommendations
She is on home oxygen 2.5L, using Trelegy ellipta at home
She was not using her nebulizer at home as instructed
Currently on O2 2L, POx high 90s
First DH adm
Continue with DuoNebs, budesonide
Hold Trelegy for now, resume upon d/c
Was on IV Decadron 4 mg IV q6, down to 4 mg q8, as she was improving, then transitioned to prednisone 40 mg qd starting 04-03, due to bronchospasm event that day adm recio resumed IV dexam (earlier visit by adm recio today reported active wheezing)
At time of visit resp daniel comfortable, return to prednisone taper to off
Advised not to refuse guaifenesin
On inpatient daily macrolide therapy, azithromycin, but noted progressive leukopenia (did present leukopenia on adm)
Rec to d/c azithromycin 04-03 as could accentuate leukopenia
Start doxycycline 100 mg po bid 04-03, no reported hematologic side effects, complete 5 d regimen through 04-05
Added 3% saline neb in the a.m., can d/c upon d/c
Oral thrush, start nystatin, TT Dr Gilliam
GERD therapy while on steroids
Concerned about patient's 10 pound weight loss which will likely have a dramatic effect on her respiratory status
Noted leukopenia on adm, progressive, monitor, d/c azithromycin
Nutritional evaluation appreciated
Rec pulm f/u as op
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
D/w Mrs Burgos on a daily basis
Subjective Data
-
Date of Service:
Date of Service: April 05, 2023
Chief Complaint: Pulmonary Follow Up
Subjective:
Pulm improvement continues
Review of Systems
General: Fever (n), Sweats (n), Chills and Satisfactory Appetite
HEENT: Epistaxis and Dysphagia (n)
Cardiopulmonary: Dyspnea on Exertion, Cough, Wheezing (n) and Edema (n)
GI: Abdominal Pain (n), Nausea (n) and Vomiting (n)
Neuro: Weakness
Objective Data
Data Reviewed
Vital Signs / I&O / Oxygen:
Vital Signs
Temp Pulse Resp BP Pulse Ox
97.4 F 76 18 132/66 100
04/05/23 07:00 04/05/23 11:59 04/05/23 07:00 04/05/23 07:00 04/05/23 07:35
Intake and Output
04/04/23 04/05/23 04/06/23
06:59 06:59 06:59
Intake Total 480 / 480 1500 / 1500
Output Total 240 / 240
Balance 480 / 240 1260 / 1260
SaO2 100
Nasal Cannula flow liters per 3
minute
Physical Exam
General: Respiratory Distress (n)
HEENT: Normocephalic, Moist Mucous Membranes and Thrush
Cardiovascular: Regular Rhythm, Murmur, Peripheral Edema and Calf Tenderness (n)
Respiratory: Wheeze (n at time of visit), Rhonchi, Accessory Resp Muscle Use and Stridor
GI: Soft, Non Distended, Non Tender and Normal Bowel Sounds
Neurology: Awake, AO x 3 and No Motor Deficits
Skin: Dry
Labs/Micro/Reports
Lab Data
04/05/23 05:00
04/05/23 05:00
--- NOTE | 2023-04-07 07:26 | W.DCSUMMARY ---
Discharge Summary
Discharge Data
Date of Admission: 03/30/23
Date of Discharge: 04/05/23
-
Pending Results: No
Hospital Course
Discharging Physician : Dr Carlitos Gilliam
Disposition : Home
Primary care physician : Dr Narayan Jung
Principal Discharge diagnosis :
Acute chronic obstructive pulmonary disease flareup
Acute on chronic hypoxic respiratory failure
Thyroid mass
Chest tightness
Moderate aortic stenosis
Chronic Discharge diagnosis :
Anxiety
Underweight/cachexia
Leukopenia
History of recurrent transient ischemic attack
History of left endarterectomy
Hyperlipidemia
Hospital Course :
Patient is 78-year-old female with above-mentioned past medical history came to ER for having new onset of shortness of breath and cough. Symptom has been ongoing for for 5 days before patient presented to hospital. Patient uses 2 L oxygen at for
COPD at home and has been compliant. In ER patient was noted to having worsening hypoxia and was felt to be related to COPD flareup. Patient was started on IV steroids/bronchodilator therapy and pulmonology was involved in care. Patient was
started on doxycycline therapy as well as part of COPD flareup. CT chest did not show any signs of overt pneumonia. Patient had symptom improvement over next 72 hrs.
Patient also had episode of chest tightness. CT chest have ruled out PE. Troponin 2 sets were negative. Echocardiogram showing EF 75% and moderate aortic stenosis. Case was discussed with cardiology and patient will follow-up with cardiology
outpatient basis as well.
Patient was incidentally was found to having thyroid mass on CT chest, case was discussed with ENT and was recommended to be followed up outpatient basis. Patient has been provided contact number of ENT physician.
Important imaging findings :
None
Procedure findings :
None
Discharge Plan
-
Patient Disposition: Home (Routine Discharge)
Discharge Diagnosis/Procedures: Acute on chronic hypoxic respiratory failure. Chronic obstructive pulmonary disease exacerbation. Anxiety. Thyroid mass. Aortic stenosis. History of peripheral vascular disease. Hyperlipidemia.
Diet: Low Cholesterol
Activity: As tolerated
Driving Restrictions: As prior to admission
Blood Work: PCP please order CBC, BMP within 1 week.
Referrals:
Akshat Jeffrey MD [Active] - in two to four weeks (Aortic stenosis)
Narayan Jung DO [Family Provider] - in less than 1 week
Akshat Solis MD [Active] - in three to four weeks (Thyroid mass eval)
Morris Carolina MD [Active] - (New patient, COPD, outside pulm retired, see within one m)
Prescriptions:
New
prednisone 10 mg Tablet
See Rx Instructions .ROUTE .COMPLEX Qty: 30 0RF
Rx Instructions:
Take By Mouth:
40 mg daily x3 days, 30 mg daily x3 days,
20 mg daily x3 days, 10 mg daily x3 days
doxycycline hyclate 100 mg Capsule
100 mg PO Q12 2 Days Qty: 4 0RF
nystatin 500,000 unit tablet
500,000 unit PO QID 10 Days Qty: 40 0RF
Continued
therapeutic multivitamin Tablet
1 tab PO DAILY
aspirin 81 mg Tablet,Delayed Release (Dr/Ec)
81 mg PO DAILY
Patient Comments:
03/30/2023, pt. unsure if she took this med. today.
acetaminophen [Tylenol Extra Strength] 500 mg Tablet
500 mg PO BIDPRN PRN (Reason: mild pain)
simvastatin 20 mg Tablet
20 mg PO HS
Patient Comments:
03/30/2023, this med. is prescribed for pt. to take once daily; however, pt. only takes it when they feel like it.
albuterol sulfate 90 mcg/actuation Hfa Aerosol Inhaler
2 puff INHALATION R Q4HPRN PRN (Reason: sob)
cholecalciferol (vitamin D3) 50 mcg (2,000 unit) Tablet
50 mcg PO DAILY
Trelegy Ellipta 100-62.5-25 mcg Blister With Device
1 inh INHALATION R DAILY
Discharge Orders:
Discharge Patient (As Directed); Ordered 04/05/23
Ordered By: Carlitos Gilliam
Discharge Date and Time
Discharge Date/Time: 04/05/23 15:04
--- NOTE | 2023-04-07 12:55 | PN.CDI ---
CDI
- -
CDI:
Physician Documentation Request
Admit Date: 03/30/23 15:23
Dear Doctor Mane,
Patient admitted with COPD exacerbation.
2/5 Nutrition note, 'With < 75% estimated needs > 1 month and observed muscle and fat wasting pt meets AND/ASPEN criteria for moderate protein calorie malnutrition of chronic illness.'
Please provide in your progress the specificity regarding the severity of the malnutrition:
Moderate protein calorie malnutrition
Other (please specify)
Unable to determine
Cl[place] Criteria ([facility]ist 2017)
2 or more criteria must be present for either
non severe or severe malnutrition
Note that the criteria differs related to the
presence of an acute or chronic illness
Chronic Illness
Energy Intake Non Severe: <75% for >1 month
Severe: <75% for >1 month
Weight Loss Non Severe: 5% over 1 month
7.5% over 3 months
10% over 6 months
20% over 1 year
Severe: >5% over 1 month
>7.5% over 3 months
>10% over 6 months
>20% over 1 year
Body Fat Non Severe: Mild Loss
Severe: Severe Loss
Muscle Mass Non Severe: Mild Loss
Severe: Severe Loss
Fluid Accumulation Non Severe: Mild Accumulation
Severe: Moderate to severe
accumulation
Reduced [employer] Strength Non Severe: N/A
Severe: Measurably reduced
Use of terms such as suspected, likely, concern for, or probable (associated with a specific diagnosis that is being evaluated, monitored, or treated as if it exists) are acceptable and can be coded in the inpatient setting, when documented at the
time of discharge.
Thank you,
Anastasia HARTMANN,RN,CCDS
CDI Specialist
Available via [place] text
Please use your independent medical judgment in providing your response.
== END 2023-04-05 15:04 | disposition home health service (06) | DRG 190 ==
LOC: 3 WEST ACU 15:23
PROVIDERS: Physician Assistant Medical; ADMITTING PHYSICIAN Hospitalist; ATTENDING PHYSICIAN Hospitalist; EMERGENCY PHYSICIAN Emergency Medicine; FAMILY PHYSICIAN Family Medicine; OTHER PHYSICIAN Internal Medicine Critical Care Medicine
DX: J44.1 Chronic obstructive pulmonary disease with (acute) exacerbation (principal); J96.21 Acute and chronic respiratory failure with hypoxia; E44.0 Moderate protein-calorie malnutrition; R64 Cachexia; Z68.1 Body mass index [BMI] 19.9 or less, adult; Z86.73 Personal history of transient ischemic attack (TIA), and cerebral infarction without residual deficits; E78.5 Hyperlipidemia, unspecified; F17.210 Nicotine dependence, cigarettes, uncomplicated; I73.9 Peripheral vascular disease, unspecified; Z99.81 Dependence on supplemental oxygen; Z66 Do not resuscitate; Z86.16 Personal history of COVID-19; E07.9 Disorder of thyroid, unspecified; I35.0 Nonrheumatic aortic (valve) stenosis; F41.9 Anxiety disorder, unspecified; D72.819 Decreased white blood cell count, unspecified
CPT/HCPCS: 71275; 80048; 80053; 83880; 84484; 85025; 85027; 85610; 85730; 93005; 93306; 94640; 97116; 97162; 97166; 97535; 99285; Q9967